=== PATIENT | male | born 1980 | race American Indian/Alaskan Native ===

== ENCOUNTER 2017-11-30 16:21 | Emergency (ER) | payer MEDICAID ==
[2017-11-30 18:17] LABS: Basophils % (Auto) 0.4 % (0.0-1.8); Eosinophils # (Auto) 0.1 K/mm3 (0.0-0.4); Eosinophils % (Auto) 1.5 % (0.0-4.3); Hematocrit 42.4 % (35.5-45.6); Hemoglobin 13.8 gm/dl (11.8-15.2); Lymphocytes # (Auto) 0.7 K/mm3 (1.2-5.4); Lymphocytes % (Auto) 16.5 % (13.4-35.0); Mean Corpuscular HGB Conc 33 % (32-34); Mean Corpuscular Hemoglobin 29 pg (28-32); Mean Corpuscular Volume 89 fl (84-94); Monocytes # (Auto) 0.2 K/mm3 (0.0-0.8); Monocytes % (Auto) 4.8 % (0.0-7.3); Platelet Count 166 K/mm3 (140-440); Red Blood Count 4.74 M/mm3 (3.65-5.03); Red Cell Distribution Width 14.4 % (13.2-15.2)
[2017-11-30 18:33] LABS: Alanine Aminotransferase 8 units/L (7-56); Albumin 4.4 g/dL (3.9-5); BUN/Creatinine Ratio 14; Blood Urea Nitrogen 14 mg/dL (9-20); Calcium 9.3 mg/dL (8.4-10.2); Hemolysis Index 22
[2017-11-30 19:38] LABS: Bacteria,Urine 1+ /HPF (Negative); Bilirubin,Urine NEG (Negative); Blood,Urine NEG (Negative); Color,Urine Yellow (Yellow); Mucus,Urine FEW /HPF; Nitrite,Urine NEG (Negative); WBC,Urine < 1.0 /HPF (0.0-6.0)
[2017-11-30 19:51] LABS: Amphetamine Screen,Urine PRESUMPTIVE NEGATIVE; Benzodiazepines Screen,Urine PRESUMPTIVE NEGATIVE; Cocaine Screen,Urine PRESUMPTIVE NEGATIVE; Methadone Screen,Urine PRESUMPTIVE NEGATIVE; Opiate Screen,Urine PRESUMPTIVE NEGATIVE
[2017-11-30 20:03] LABS: Cannabinoid Screen,Urine PRESUMPTIVE POSITIVE
[2017-11-30 20:18] VITALS: BP 92/51
--- NOTE | 2017-11-30 20:20 | Emergency Department Report ---
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 No seizure in 1 year but follow up his doctor next week. Has residual right sided defects and is in a [facility] for care needs. PCP is Dr. Shadia CRENSHAW Complaint: seizure -: Sudden Description of Episode: loss of consciousness, tonic-clonic movement -: second(s) Witnessed:: Yes Trauma: No Seizure History: known seizure disorder Place: home Possible Precipitating Event: none Associated Symptoms: confusion (initialy but now at baseline.) Treatments Prior to Arrival: benzodiazepines (ativan 2 mg IV.) - Related Data Previous Rx's Medication Instructions Recorded Last Taken Type LORazepam [Ativan] 1 mg PO BID 10 Days #20 tab 11/30/17 Unknown Rx levETIRAcetam [Keppra TAB] 500 mg PO BID #60 tablet 11/30/17 Unknown Rx Allergies Allergy/AdvReac Type Severity Reaction Status Date / Time No Known Allergies Allergy Verified 11/30/17 16:50 ED Review of Systems ROS: Stated complaint: SEIZURES Other details as noted in HPI Constitutional: denies: chills, fever Eyes: denies: eye pain, eye discharge, vision change ENT: denies: ear pain, throat pain Respiratory: denies: cough, shortness of breath, wheezing Cardiovascular: denies: chest pain, palpitations Endocrine: no symptoms reported Gastrointestinal: denies: abdominal pain, nausea, diarrhea Genitourinary: denies: urgency, dysuria Musculoskeletal: denies: back pain, joint swelling, arthralgia Skin: denies: rash, lesions Neurological: paresthesias (no new paresthesia from baseline.). denies: headache, weakness Psychiatric: denies: anxiety, depression Hematological/Lymphatic: denies: easy bleeding, easy bruising ED Past Medical Hx - Past Medical History Hx CVA: Yes Hx Seizures: Yes - Social History Smoking Status: Current Some Day Smoker Substance Use Type: Alcohol, Marijuana - Medications Home Medications: Home Medications Medication Instructions Recorded Confirmed Last Taken Type LORazepam [Ativan] 1 mg PO BID 10 Days #20 tab 11/30/17 Unknown Rx levETIRAcetam [Keppra TAB] 500 mg PO BID #60 tablet 11/30/17 Unknown Rx ED Physical Exam - General Limitations: No Limitations General appearance: alert, in no apparent distress - Head Head exam: Present: atraumatic, normocephalic - Eye Eye exam: Present: normal appearance - ENT ENT exam: Present: mucous membranes moist - Neck Neck exam: Present: normal inspection - Respiratory Respiratory exam: Present: normal lung sounds bilaterally. Absent: respiratory distress - Cardiovascular Cardiovascular Exam: Present: regular rate, normal rhythm. Absent: systolic murmur, diastolic murmur, rubs, gallop - GI/Abdominal GI/Abdominal exam: Present: soft, normal bowel sounds - Rectal Rectal exam: Present: deferred - Extremities Exam Extremities exam: Present: normal inspection - Back Exam Back exam: Present: normal inspection - Neurological Exam Neurological exam: Present: alert, oriented X3, CN II-XII intact, motor sensory deficit (baseline right sided deficit both sensory and motor that is unchange from before.), reflexes normal - Psychiatric Psychiatric exam: Present: normal affect, normal mood - Skin Skin exam: Present: warm, dry, intact, normal color. Absent: rash ED Course Vital Signs 11/30/17 11/30/17 16:30 16:40 Temperature 97.8 F Pulse Rate 85 Respiratory 14 18 Rate Blood Pressure 102/71 Blood Pressure 102/71 [Right] O2 Sat by Pulse 98 Oximetry ED Medical Decision Making - Lab Data Result diagrams: 11/30/17 17:55 11/30/17 17:55 unremarkable labs. - Medical Decision Making Patient with known seizure disorder. Will increase keppra as he is reportedly on 100 mg bid but likely is 1000 bid. We will give him 500 mg bid in addition to his current dose. He will not exceed the max dose if he is really on 1000mg but will definitely help his seizure activity. Also we will give ativan for 2 days until normalized and has follow up with MD next week. Critical care attestation.: If time is entered above; I have spent that time in minutes in the direct care of this critically ill patient, excluding procedure time. ED Disposition Clinical Impression: Seizure Disposition: DC-01 TO HOME OR SELFCARE Is pt being admited?: No Does the pt Need Aspirin: No Condition: Good Instructions: Recurrent Seizures Adult (ED) Additional Instructions: Patient to keep follow up appointment with doctor next week. They may want to consider CT head but we did not do a CT with prior history and no new findings. Prescriptions: levETIRAcetam [Keppra TAB] 500 mg PO BID #60 tablet LORazepam [Ativan] 1 mg PO BID 10 Days #20 tab Referrals: [facility] [Outside] - 3-5 Days (Or follow up with your regular doctor ([facility])) Time of Disposition: 20:28
== END 2017-12-01 | disposition home or self-care (01) ==
LOC: ED 16:21
DX: R56.9 Unspecified convulsions (principal); F12.10 Cannabis abuse, uncomplicated; I63.9 Cerebral infarction, unspecified; F17.200 Nicotine dependence, unspecified, uncomplicated
CPT/HCPCS: 36415; 80053; 80307; 81001; 85025; 99284; G0480; 80320

== ENCOUNTER 2019-01-01 16:12 | Emergency (ER) | payer MEDICAID ==
[2019-01-01] MEDS ORDERED: NACL 0.9% 1000 ML 1,000 ML IV ONE (16:32)
--- NOTE | 2019-01-01 16:37 | Emergency Department Report ---
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 Patient brought to the emergency room via EMS for him on a urgent care center. Patient had 2 seizure witnessed at the urgent care waiting room and one more seizure in the ambulance for which patient received 2 mg of Ativan. History is from EMS and from previous medical records. Patient records show that he is on Keppra 1500 mg twice a day. MD Complaint: seizure -: Sudden Description of Episode: loss of consciousness, tonic-clonic movement, post-event confusion Witnessed:: Yes Trauma: No Seizure History: known seizure disorder Place: other Possible Precipitating Event: none - Related Data Previous Rx's Medication Instructions Recorded Last Taken Type LORazepam [Ativan] 1 mg PO BID 10 Days #20 tab 11/30/17 Unknown Rx levETIRAcetam [Keppra TAB] 500 mg PO BID #60 tablet 11/30/17 Unknown Rx levETIRAcetam [Keppra TAB] 1,000 mg PO BID #60 tab 01/01/19 Unknown Rx Allergies Allergy/AdvReac Type Severity Reaction Status Date / Time No Known Allergies Allergy Verified 11/30/17 16:50 ED Review of Systems ROS: Stated complaint: SEIZURE Other details as noted in HPI Comment: All other systems reviewed and negative Constitutional: denies: chills, fever Respiratory: cough. denies: orthopnea, shortness of breath, SOB with exertion, SOB at rest, wheezing Cardiovascular: denies: chest pain, palpitations, dyspnea on exertion Gastrointestinal: denies: abdominal pain, nausea, vomiting, diarrhea, constipation Neurological: denies: headache ED Past Medical Hx - Past Medical History Previous Medical History?: Yes Hx CVA: Yes Hx Seizures: Yes Hx Psychiatric Treatment: Yes Hx HIV: Yes Additional medical history: brain lesion - Social History Smoking Status: Unknown if ever smoked - Medications Home Medications: Home Medications Medication Instructions Recorded Confirmed Last Taken Type LORazepam [Ativan] 1 mg PO BID 10 Days #20 tab 11/30/17 Unknown Rx levETIRAcetam [Keppra TAB] 500 mg PO BID #60 tablet 11/30/17 Unknown Rx levETIRAcetam [Keppra TAB] 1,000 mg PO BID #60 tab 01/01/19 Unknown Rx ED Physical Exam - General Limitations: Altered Mental Status General appearance: postictal - Head Head exam: Present: atraumatic, normocephalic, normal inspection - Eye Eye exam: Present: normal appearance - ENT ENT exam: Present: normal exam, normal orophraynx, mucous membranes moist - Neck Neck exam: Present: normal inspection, full ROM. Absent: tenderness, meni ngismus, lymphadenopathy, thyromegaly - Respiratory Respiratory exam: Present: normal lung sounds bilaterally - Cardiovascular Cardiovascular Exam: Present: tachycardia - GI/Abdominal GI/Abdominal exam: Present: soft, normal bowel sounds. Absent: distended, tenderness, guarding, rebound, rigid - Extremities Exam Extremities exam: Present: normal inspection, full ROM, normal capillary refill - Back Exam Back exam: Present: normal inspection, full ROM. Absent: CVA tenderness (R), CVA tenderness (L), muscle spasm, paraspinal tenderness, vertebral tenderness - Neurological Exam Neurological exam: Present: altered - Skin Skin exam: Present: warm, intact, normal color ED Course Vital Signs 01/01/19 01/01/19 01/01/19 16:20 16:36 17:00 Temperature 98 F Pulse Rate 108 H 94 H 92 H Respiratory 19 22 19 Rate Blood Pressure 124/66 110/68 O2 Sat by Pulse 98 97 100 Oximetry 01/01/19 01/01/19 17:24 18:00 Temperature 98.4 F Pulse Rate 66 Respiratory 12 Rate Blood Pressure 111/62 O2 Sat by Pulse 100 Oximetry ED Medical Decision Making - Lab Data Result diagrams: 01/01/19 16:32 01/01/19 16:32 - Radiology Data Radiology results: report reviewed Referring Physician: YENI FUNES Patient Name: ANTIONE MOODY Date of : 1980 Sex: Male Report Date: 2019-01-01 Report Status: Finalized Findings [facility] [address] [place] [address] XRay Report Signed Patient: ANTIONE MOODY MR#: [id number] : 1980 Acct:[id number] Age/Sex: 38 / M ADM Date: 01/01/19 Loc: ED Attending Dr: Ordering Physician: YENI FUNES Date of Service: 01/01/19 Procedure(s): XR chest 1V ap Accession Number(s): [id number] cc: YENI Grover Time In Minutes: FINAL REPORT EXAM: XR CHEST 1V AP HISTORY: cough TECHNIQUE: Chest single portable upright AP PRIORS: None. FINDINGS: There is focal increased density in the left lower lobe distribution. Left hemidiaphragm is elevated in there is distended appearance the stomach. No additional acute pulmonary findings. Cardiac and mediastinal contours are within limits. Pulmonary vasculature is unremarkable. 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 Patient brought to the emergency room via EMS for him on a urgent care center. Patient had 2 seizure witnessed at the urgent care waiting room and one more seizure in the ambulance for which patient received 2 mg of Ativan. History is from EMS and from previous medical records. Patient records show that he is on Keppra 1500 mg twice a day. Patient now is awake, alert and oriented 3. His sister is present in the room. Patient stated that since he finished his month supply of Keppra he did not fill his medication after that. I will refill his Keppra and I advised him to follow-up with his primary care physician in the next 2-3 days. Critical care attestation.: If time is entered above; I have spent that time in minutes in the direct care of this critically ill patient, excluding procedure time. ED Disposition Clinical Impression: Seizure, Left lower lobe pneumonia Disposition: DC-01 TO HOME OR SELFCARE Is pt being admited?: No Condition: Stable Instructions: Recurrent Seizures Adult (ED), Bacterial Pneumonia (ED) Prescriptions: levETIRAcetam [Keppra TAB] 1,000 mg PO BID #60 tab Referrals: DIONY JARVIS MD [Primary Care Provider] - 3-5 Days
[2019-01-01] MEDS ORDERED: KEPPRA 500 MG in NACL 0.9% 100 ML IV ONE (17:00)
[2019-01-01] MEDS ORDERED: KEPPRA 500 MG/NS 0.82% 100 ML 500 MG/100 ML BAG IV ONE ×2 (17:00)
[2019-01-01 17:02] LABS: Hematocrit 40.5 % (35.5-45.6); Hemoglobin 12.7 gm/dl (11.8-15.2); Mean Corpuscular HGB Conc 31 % (32-34); Mean Corpuscular Volume 95 fl (84-94); Platelet Count 191 K/mm3 (140-440); Red Blood Count 4.25 M/mm3 (3.65-5.03); Red Cell Distribution Width 14.4 % (13.2-15.2)
[2019-01-01 17:21] LABS: BUN/Creatinine Ratio 7; Blood Urea Nitrogen 10 mg/dL (9-20); Calcium 9.4 mg/dL (8.4-10.2); Hemolysis Index 7
[2019-01-01 17:26] LABS: Alanine Aminotransferase 12 units/L (7-56); Albumin 4.8 g/dL (3.9-5)
[2019-01-01 17:28] LABS: Bilirubin,Direct < 0.2 mg/dL (0-0.2)
[2019-01-01 18:46] LABS: Bilirubin,Urine NEG (Negative); Blood,Urine NEG (Negative); Color,Urine Yellow (Yellow); Mucus,Urine FEW /HPF; Protein,Urine <15 mg/dL mg/dL (Negative); RBC,Urine < 1.0 /HPF (0.0-6.0); Urobilinogen,Urine < 2.0 mg/dL (<2.0)
[2019-01-01 19:08] LABS: Amphetamine Screen,Urine PRESUMPTIVE NEGATIVE; Benzodiazepines Screen,Urine PRESUMPTIVE NEGATIVE; Cannabinoid Screen,Urine PRESUMPTIVE NEGATIVE; Cocaine Screen,Urine PRESUMPTIVE NEGATIVE; Methadone Screen,Urine PRESUMPTIVE NEGATIVE; Opiate Screen,Urine PRESUMPTIVE NEGATIVE
--- NOTE | 2019-01-01 19:19 | XRay Report ---
FINAL REPORT EXAM: XR CHEST 1V AP HISTORY: cough TECHNIQUE: Chest single portable upright AP PRIORS: None. FINDINGS: There is focal increased density in the left lower lobe distribution. Left hemidiaphragm is elevated in there is distended appearance the stomach. No additional acute pulmonary findings. Cardiac and med iastinal contours are within limits. Pulmonary vasculature is unremarkable. IMPRESSION: Left lower lobe infiltrate suspicious for pneumonia Elevated left hemidiaphragm findings suggest gastric distention
[2019-01-01] MEDS ORDERED: KEPPRA 1,000 MG/NS 0.75% 100ML 1,000 MG/100 ML BAG IV ONE (20:02)
[2019-01-01] MEDS ORDERED: LEVAQUIN PO ONE (20:25)
[2019-01-01 21:40] VITALS: BP 121/80
== END 2019-01-01 22:45 | disposition home or self-care (01) ==
LOC: ED 16:12
DX: G40.909 Epilepsy, unspecified, not intractable, without status epilepticus (principal); J18.1 Lobar pneumonia, unspecified organism; B58.9 Toxoplasmosis, unspecified; R41.82 Altered mental status, unspecified; Z21 Asymptomatic human immunodeficiency virus [HIV] infection status
CPT/HCPCS: 36415; 71045; 80048; 80076; 80307; 81001; 85027; 96365; 99284; J1953; J7030; 96361